=== PATIENT | female | born 1985 | race Caucasian/White ===

== ENCOUNTER → 2016-11-14 | Outpatient (CLI) | payer OTHER ==
--- NOTE | 2016-11-18 14:02 | CPEEG ---
[f rep st] ELECTROENCEPHALOGRAM 4-HOUR VIDEO ELECTROENCEPHALOGRAM DATE OF STUDY: 11/14/2016 DATE OF INTERPRETATION: 11/18/2016 INTERPRETATION: This EEG is abnormal due to the presence of very frequent potentially epileptogenic abnormalities over the left frontal head region. 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 In addition, there was a mild degree of focal slowing over the left frontotemporal head regions. These findings are consistent with a mild focal disturbance of cerebral function in these regions. There were no definite electrographic, subclinical seizure discharges during the awake and sleep recordings. REPORT: This 4-hour EEG contains 9-10 Hz alpha to the posterior head regions. There was a mild degree of focal slowing over the left frontotemporal head regions, maximal left frontal. This was composed of low to moderate amplitude polymorphic theta activity. The primary feature of this recording was the presence of very frequent left frontal spikes and sharp wave discharges that occurred in prolonged trains. These were maximal at electrodes Fp1 and F7, but at times had a wider distribution over the left frontotemporal head region, maximal left frontal. There was continued activation with photic stimulation or hyperventilation. The patient became drowsy and fell asleep during the study. During drowsiness and sleep, the frequent trains of left frontal discharges continued and evolved into left frontal polyspike discharges. These discharges were very frequent but did not evolve in frequency or distribution to qualify for an electrographic, subclinical seizure. /[id number]/MODL MTDD
== END ==
LOC: FCPNEURO 08:51
PROVIDERS: ATTEND Psychiatry & Neurology Neurology
DX: R94.31 Abnormal electrocardiogram [ECG] [EKG] (principal); G40.909 Epilepsy, unspecified, not intractable, without status epilepticus